=== PATIENT | male | born 1985 | race Caucasian/White ===

== ENCOUNTER 2018-08-23 08:39 | Day surgery (SDC) | payer BC ==
[2018-08-23 08:55] VITALS: BMI 33.0
[2018-08-23] MEDS ORDERED: BUPIVACAINE HCL/PF 2.5 MG/ML - 30 ML VIAL IJ ONE (09:23)
[2018-08-23] MEDS ORDERED: BUPIVACAINE HCL/PF (5 MG/ML) 30 ML VIAL IJ ONE (09:34)
[2018-08-23] MEDS ORDERED: MIDAZOLAM HCL 2 MG/2 ML SINGLE DOSE VIAL ONE ×2 (09:34→09:58)
[2018-08-23] MEDS ORDERED: DEXAMETHASONE SOD PHOSPHATE/PF 10 MG/ML SDV ONE (09:34)
[2018-08-23] MEDS ORDERED: DEXMEDETOMIDINE HCL 200 MCG/2 ML ML IVPB ONE (09:34)
[2018-08-23] MEDS ORDERED: ceFAZolin SODIUM 1 GM VIAL ONE (10:16)
[2018-08-23] MEDS ORDERED: KETOROLAC TROMETHAMINE 30 MG/1 ML VIAL ONE (10:16)
[2018-08-23] MEDS ORDERED: DEXAMETHASONE SOD PHOSPHATE 4 MG/1 ML VIAL ONE (10:16)
[2018-08-23] MEDS ORDERED: ONDANSETRON 4 MG/2 ML VIAL ONE (10:16)
[2018-08-23] MEDS ORDERED: oxyCODONE HCL 5 MG TABLET PO PRN ×2 (11:30)
[2018-08-23] MEDS ORDERED: ONDANSETRON 4 MG/2 ML VIAL IVPUSH PRN (11:30)
[2018-08-23] MEDS ORDERED: PROMETHAZINE HCL 25 MG/1 ML VIAL IVPUSH PRN (11:30)
[2018-08-23 12:46] VITALS: TEMP 98.2
[2018-08-23 15:12] VITALS: BP 120/72; PULSE 72
--- NOTE | 2018-08-25 21:03 | OP ---
DATE OF OPERATION: 08/23/2018 LOCATION: [facility]. SURGEON: Alexis Hazel MD RESPIRATORY CARE ASSISTANT: BART Cannon PREOPERATIVE DIAGNOSIS: Left Achilles tendon rupture. POSTOPERATIVE DIAGNOSIS: Left Achilles tendon rupture. PROCEDURE: Repair of left Achilles tendon. FINDINGS: Ruptured Achilles, junction between middle and proximal third Achilles tendon. PROCEDURE: Informed consent was obtained. Patient taken to the operating room, where the left lower extremity was prepped and draped in sterile fashion. Tourniquet was placed on the upper leg and inflated to 300 mmHg. The patient was placed in prone position. Incision was made along the area of tearing, approximately 8 cm in length. This was taken down to the paratenon and the ruptured tendon was identified. Damaged tissue was removed and the sclerotic areas were debrided. The wound was irrigated with copious amounts of irrigation. A number 5 Ethibond suture was placed through the proximal and distal portions using a Krackow interlocked stitch. These were then connected centrally in the central portion of the tendon and oversewn with number 2 FiberWire circumferentially around the tear. The wound was irrigated with copious amounts of irrigation. Layered closure of 0 Vicryl, 2-0 Vicryl, and karlene were used. Sterile dressing and splint was placed, and the patient was transferred to recovery without complication. Please note that Main Tsai's assistance was necessary for performance of this operation due to the nature of positioning for the Achilles tendon and to allow reduction of the repair while being performed. Vira [id number]
--- NOTE | 2018-08-27 13:57 | PATH ---
Surgical Pathology Report Patient Name: AMIRA GRADY Med. Rec. #: [id number] /Age/Gender: 1985 (Age: 33) / M Account: [id number] Location: [facility] AMBULATORY Taken: 08/23/2018 Received: 08/23/2018 Reported: 08/27/2018 Physicians: Alexis Hazel M.D. Specimen(s) Received LEFT ACHILLES TENDON Clinical History Left Achilles tendon strain Final Diagnosis ACHILLES TENDON, LEFT, REPAIR: DENSE FIBROCONNECTIVE TISSUE AND FIBROADIPOSE TISSUE WITH GRANULATION TISSUE FORMATION AND REACTIVE CHANGES. Electronically Signed Cecilia Foster M.D. Gross Description Received in formalin labeled "tendon rupture, left Achilles tendon," is a 1.8 x 1.1 x 0.3 cm aggregate of gracia-brown portions of fibrous tissue, consistent with a portion of ruptured tendon. The specimen is submitted in toto in one cassette. 08/26/201808/26/2018
== END 2018-08-23 15:14 | disposition home or self-care (01) ==
LOC: FASU 08:39
PROVIDERS: ATTEND Orthopaedic Surgery
PROC: 0LQP0ZZ Repair Left Lower Leg Tendon, Open Approach (ICD-10-PCS; principal; 2018-08-23 10:30)
DX: S86.012A Strain of left Achilles tendon, initial encounter (principal); X58.XXXA Exposure to other specified factors, initial encounter; Y93.9 Activity, unspecified; Y92.9 Unspecified place or not applicable
CPT/HCPCS: 88304-TC; 94760